=== PATIENT | female | born 1990 | race Caucasian/White ===

== ENCOUNTER 2017-06-02 04:04 | Inpatient (IN) | payer BC ==
[2017-06-02] MEDS: DEXTROSE 5%-0.45% NACL 1,000 ML IV ×2 (05:10→18:14)
[2017-06-02 06:28] LABS: ADD MAN DIFF? NO
[2017-06-02 06:44] LABS: BASOPHILS % 0.6 % (0.0-2.0); EOSINOPHILS # 0.5 10^3/ul (0.0-0.5); EOSINOPHILS % 6.5 % (0.0-7.0); HEMATOCRIT 38.9 % (37.0-47.0); LYMPHOCYTES # 3.2 10^3/ul (0.8-2.9); LYMPHOCYTES % 45.1 % (15.0-51.0); MEAN CORPUSCULAR HEMOGLOBIN 30.4 pg (29.0-33.0); MEAN CORPUSCULAR HGB CONC 33.4 g/dl (32.0-37.0); MEAN CORPUSCULAR VOLUME 90.9 fl (82.0-101.0); MONOCYTE # 0.5 10^3/ul (0.3-0.9); MONOCYTES % 7.5 % (0.0-11.0); NEUTROPHIL # 2.9 10^3/ul (1.6-7.5); NEUTROPHILS % 40.2 % (39.0-77.0); PLATELET COUNT 218 10^3/UL (140-415); RED BLOOD COUNT 4.28 10^6/ul (4.20-5.40)
[2017-06-02 06:44] LABS: WHITE BLOOD COUNT 7.2 10^3/ul (4.8-10.8)
[2017-06-02] MEDS: morphine 2 MG INJ IV ×2 (06:53→11:26)
[2017-06-02 07:11] LABS: ALANINE AMINOTRANSFERASE 84 IU/L (13-69); ALBUMIN 3.1 g/dl (3.3-4.9); ALBUMIN/GLOBULIN RATIO 1.06; ALKALINE PHOSPHATASE 68 IU/L (42-121); ANION GAP 8 (8-16); ASPARTATE AMINO TRANSFERASE 42 IU/L (15-46); BLOOD UREA NITROGEN 11 mg/dl (7-20); CALCIUM 8.5 mg/dl (8.4-10.2); CARBON DIOXIDE 32 mmol/L (21-31); CHLORIDE 108 mmol/L (97-110); CREATININE 0.68 mg/dl (0.44-1.00); GLUCOSE 100 mg/dl (70-220); POTASSIUM 4.1 mmol/L (3.5-5.1); SODIUM 144 mmol/L (135-144)
[2017-06-02] MEDS ORDERED: ZOLPIDEM 5 MG TAB PO (08:30)
[2017-06-02] MEDS ORDERED: NACL 0.9% 3 ML SYG IV (08:30)
[2017-06-02] MEDS ORDERED: ACETAMINOPHEN 325 MG TAB PO (08:30)
[2017-06-02] MEDS: HYDROCODONE/APAP (5/325) TAB PO (10:13)
[2017-06-02] MEDS: ALBUTEROL/IPRATROPIUM (NEB) 3 ML AMP HHN (12:06)
[2017-06-02] MEDS: HYDROmorphONE 0.5 MG/0.5 ML SYG IV ×3 (12:58→21:22)
[2017-06-02 13:30] LABS: INR 0.88; PT RATIO 0.9
[2017-06-03] MEDS: HYDROmorphONE 0.5 MG/0.5 ML SYG IV ×5 (01:49→22:53)
[2017-06-03 06:14] LABS: ADD MAN DIFF? NO
[2017-06-03 06:22] LABS: BASOPHILS % 0.3 % (0.0-2.0); EOSINOPHILS # 0.3 10^3/ul (0.0-0.5); EOSINOPHILS % 4.3 % (0.0-7.0); HEMATOCRIT 37.4 % (37.0-47.0); HEMOGLOBIN 12.7 g/dl (12.0-16.0); LYMPHOCYTES # 2.8 10^3/ul (0.8-2.9); LYMPHOCYTES % 40.1 % (15.0-51.0); MEAN CORPUSCULAR HEMOGLOBIN 30.6 pg (29.0-33.0); MEAN CORPUSCULAR VOLUME 90.1 fl (82.0-101.0); MONOCYTE # 0.4 10^3/ul (0.3-0.9); MONOCYTES % 5.6 % (0.0-11.0); NEUTROPHIL # 3.4 10^3/ul (1.6-7.5); NEUTROPHILS % 49.6 % (39.0-77.0); PLATELET COUNT 216 10^3/UL (140-415); RED BLOOD COUNT 4.15 10^6/ul (4.20-5.40); RED CELL DISTRIBUTION WIDTH 11.9 % (11.5-14.5)
[2017-06-03 06:22] LABS: WHITE BLOOD COUNT 6.9 10^3/ul (4.8-10.8)
[2017-06-03] MEDS: DEXTROSE 5%-0.45% NACL 1,000 ML IV ×3 (06:32→21:00)
[2017-06-03 06:52] LABS: ALANINE AMINOTRANSFERASE 87 IU/L (13-69); ALBUMIN 3.1 g/dl (3.3-4.9); ALKALINE PHOSPHATASE 61 IU/L (42-121); ANION GAP 6 (8-16); ASPARTATE AMINO TRANSFERASE 39 IU/L (15-46); BILIRUBIN,INDIRECT 0.2 mg/dl (0-1.1); BILIRUBIN,TOTAL 0.2 mg/dl (0.2-1.3); BLOOD UREA NITROGEN 6 mg/dl (7-20); CALCIUM 8.4 mg/dl (8.4-10.2); CARBON DIOXIDE 31 mmol/L (21-31); CHLORIDE 108 mmol/L (97-110); CREATININE 0.56 mg/dl (0.44-1.00); GLUCOSE 101 mg/dl (70-220); SODIUM 141 mmol/L (135-144); TOTAL PROTEIN 5.9 g/dl (6.1-8.1)
[2017-06-03] MEDS ORDERED: CEFAZOLIN 1 GM INJ (07:00)
[2017-06-03] MEDS ORDERED: hydrALAzine 20 MG INJ IV (07:00)
[2017-06-03] MEDS ORDERED: DIPHENHYDRAMINE 50 MG INJ IV (07:00)
[2017-06-03] MEDS ORDERED: FENTAnyl 50 MCG/ML VIAL IV ×2 (07:00)
[2017-06-03] MEDS ORDERED: ATROPINE 1 MG/10 ML SYRINGE IV (07:00)
[2017-06-03] MEDS ORDERED: morphine (1 MG/ML) 10ML SYRINGE IV ×3 (07:00)
[2017-06-03] MEDS ORDERED: HYDROmorphONE (0.2 MG/ML) 10ML SYG IV ×2 (07:00)
[2017-06-03] MEDS ORDERED: MIDAZOLAM 1 MG/ML 2 ML INJ IV (07:00)
[2017-06-03] MEDS ORDERED: LABETALOL HCL 20MG INJ IV (07:00)
[2017-06-03] MEDS ORDERED: OXYCODONE/ACETAMINOPHEN (5/325) TAB PO ×2 (07:00)
[2017-06-03] MEDS ORDERED: EPHEDrine SULFATE 50 MG/5 ML SYG IV (07:00)
[2017-06-03] MEDS ORDERED: MEPERIDINE 25 MG INJ IV (07:00)
[2017-06-03] MEDS: PANTOPRAZOLE 40 MG INJ IV (09:54)
[2017-06-03] MEDS ORDERED: NEOSTIGMINE 3 MG/3 ML SYRINGE (11:41)
[2017-06-03] MEDS ORDERED: LIDOCAINE 2% (SDV) 5 ML INJ (11:41)
[2017-06-03] MEDS ORDERED: GLYCOPYRROLATE 0.4 MG INJ (11:41)
[2017-06-03] MEDS ORDERED: ROCURONIUM 50 MG INJ (11:41)
[2017-06-03] MEDS ORDERED: PROPOFOL 20 ML (11:41)
[2017-06-03] MEDS ORDERED: MIDAZOLAM 1 MG/ML 2 ML INJ (11:41)
[2017-06-03] MEDS ORDERED: FENTAnyl 50 MCG/ML VIAL (11:42)
[2017-06-03] MEDS ORDERED: DEXAMETHASONE 4 MG/ML 1 ML INJ (11:44)
[2017-06-03] MEDS ORDERED: ONDANSETRON 4 MG INJ (11:45)
[2017-06-03] MEDS ORDERED: METOCLOPRAMIDE 10 MG INJ IV (12:00)
[2017-06-03] MEDS: BUPIVACAINE 0.25% (MPF) 30 ML INJ (12:30)
[2017-06-03] MEDS: LIDOCAINE 1%/EPI 30 ML INJ (12:31)
[2017-06-03] MEDS ORDERED: SUCCINYLCHOLINE CHLORIDE 100 MG/5 ML SYG IV (13:03)
[2017-06-03] MEDS ORDERED: NALOXONE (0.4 MG/ML) INJ (13:46)
[2017-06-03] MEDS ORDERED: FLUMAZENIL 0.5 MG INJ (13:46)
[2017-06-03] MEDS ORDERED: ACETAMINOPHEN 1000MG/100ML IV 100 ML (14:13)
[2017-06-03] MEDS: HYDROmorphONE (0.2 MG/ML) 10ML SYG IV ×2 (14:18→14:30)
[2017-06-03] MEDS: ONDANSETRON 4 MG INJ IV (14:18)
[2017-06-03] MEDS: ACETAMINOPHEN 1000MG/100ML IV 100 ML IVPB (14:20)
[2017-06-03] MEDS: METOCLOPRAMIDE 10 MG INJ IV ×2 (15:45→20:53)
[2017-06-04] MEDS: HYDROmorphONE 0.5 MG/0.5 ML SYG IV ×4 (03:45→22:10)
[2017-06-04] MEDS: DEXTROSE 5%-0.45% NACL 1,000 ML IV ×2 (03:48→17:20)
[2017-06-04] MEDS: PANTOPRAZOLE 40 MG INJ IV (05:42)
[2017-06-04] MEDS: METOCLOPRAMIDE 10 MG INJ IV ×4 (05:42→17:53)
[2017-06-04 06:19] LABS: ADD MAN DIFF? NO
[2017-06-04 06:34] LABS: WHITE BLOOD COUNT 12.5 10^3/ul (4.8-10.8)
[2017-06-04 06:34] LABS: BASOPHILS % 0.1 % (0.0-2.0); EOSINOPHILS % 0.2 % (0.0-7.0); HEMATOCRIT 38.5 % (37.0-47.0); LYMPHOCYTES # 1.8 10^3/ul (0.8-2.9); LYMPHOCYTES % 14.4 % (15.0-51.0); MEAN CORPUSCULAR HEMOGLOBIN 30.3 pg (29.0-33.0); MEAN CORPUSCULAR HGB CONC 33.8 g/dl (32.0-37.0); MEAN CORPUSCULAR VOLUME 89.7 fl (82.0-101.0); MEAN PLATELET VOLUME 11.1 fl (7.4-10.4); MONOCYTE # 0.6 10^3/ul (0.3-0.9); MONOCYTES % 5.1 % (0.0-11.0); NEUTROPHILS % 79.7 % (39.0-77.0); PLATELET COUNT 252 10^3/UL (140-415); RED BLOOD COUNT 4.29 10^6/ul (4.20-5.40); RED CELL DISTRIBUTION WIDTH 11.7 % (11.5-14.5)
[2017-06-04 07:01] LABS: HEMOGLOBIN A1C 5.1 % (0-5.9)
[2017-06-04 07:07] LABS: ANION GAP 12 (8-16); BLOOD UREA NITROGEN 5 mg/dl (7-20); CALCIUM 8.7 mg/dl (8.4-10.2); CARBON DIOXIDE 27 mmol/L (21-31); CHLORIDE 106 mmol/L (97-110); GLUCOSE 125 mg/dl (70-220); SODIUM 141 mmol/L (135-144)
[2017-06-04 07:08] LABS: CHOLESTEROL 179 mg/dl (100-200)
[2017-06-04 07:08] LABS: CHOL/HDL RATIO 5.1 RATIO; HDL CHOLESTEROL 35 mg/dl (33-83); LDL CHOLESTEROL,CALCULATED 127 mg/dl; TRIGLYCERIDES 83 mg/dl (0-149)
[2017-06-04 08:11] LABS: THYROID STIMULATING HORMONE 0.288 MIU/L (0.465-4.680)
[2017-06-04] MEDS: HYDROCODONE/APAP (5/325) TAB PO ×2 (12:51→16:11)
[2017-06-04] MEDS: CEFOTAXIME 1 GM/50 ML (PMX) 50 ML IVPB ×2 (13:53→22:10)
[2017-06-05] MEDS: HYDROmorphONE 0.5 MG/0.5 ML SYG IV ×6 (02:26→23:34)
[2017-06-05] MEDS: PANTOPRAZOLE 40 MG INJ IV (05:50)
[2017-06-05] MEDS: CEFOTAXIME 1 GM/50 ML (PMX) 50 ML IVPB ×3 (05:50→21:27)
[2017-06-05 06:25] LABS: ADD MAN DIFF? NO
[2017-06-05] MEDS: DEXTROSE 5%-0.45% NACL 1,000 ML IV ×3 (06:30→20:01)
[2017-06-05 06:37] LABS: WHITE BLOOD COUNT 9.8 10^3/ul (4.8-10.8)
[2017-06-05 06:37] LABS: BASOPHILS % 0.2 % (0.0-2.0); EOSINOPHILS # 0.2 10^3/ul (0.0-0.5); EOSINOPHILS % 1.8 % (0.0-7.0); HEMATOCRIT 35.7 % (37.0-47.0); HEMOGLOBIN 11.8 g/dl (12.0-16.0); LYMPHOCYTES # 4.1 10^3/ul (0.8-2.9); LYMPHOCYTES % 42.1 % (15.0-51.0); MEAN CORPUSCULAR HEMOGLOBIN 30.4 pg (29.0-33.0); MEAN CORPUSCULAR HGB CONC 33.1 g/dl (32.0-37.0); MEAN PLATELET VOLUME 11.1 fl (7.4-10.4); MONOCYTE # 0.6 10^3/ul (0.3-0.9); MONOCYTES % 6.1 % (0.0-11.0); NEUTROPHIL # 4.9 10^3/ul (1.6-7.5); NEUTROPHILS % 49.4 % (39.0-77.0); PLATELET COUNT 215 10^3/UL (140-415); RED BLOOD COUNT 3.88 10^6/ul (4.20-5.40); RED CELL DISTRIBUTION WIDTH 11.9 % (11.5-14.5)
[2017-06-05 07:03] LABS: ANION GAP 10 (8-16); BLOOD UREA NITROGEN 8 mg/dl (7-20); CALCIUM 8.5 mg/dl (8.4-10.2); CARBON DIOXIDE 30 mmol/L (21-31); CHLORIDE 105 mmol/L (97-110); CREATININE 0.61 mg/dl (0.44-1.00); GLUCOSE 99 mg/dl (70-220); POTASSIUM 3.6 mmol/L (3.5-5.1); SODIUM 141 mmol/L (135-144)
[2017-06-05] MEDS: HYDROCODONE/APAP (5/325) TAB PO ×2 (09:39→16:37)
[2017-06-05] MEDS: HYDROmorphONE 2 MG/ML SYG IV (10:53)
[2017-06-05] MEDS: DOCUSATE SODIUM 100 MG CAP PO (14:01)
[2017-06-05] MEDS: ONDANSETRON 4 MG INJ IV ×2 (16:45→19:58)
[2017-06-06] MEDS: HYDROCODONE/APAP (5/325) TAB PO ×2 (02:15→11:35)
[2017-06-06] MEDS: HYDROmorphONE 0.5 MG/0.5 ML SYG IV ×3 (03:40→12:26)
[2017-06-06] MEDS: DOCUSATE SODIUM 100 MG CAP PO (03:41)
[2017-06-06] MEDS: PANTOPRAZOLE 40 MG INJ IV (05:10)
[2017-06-06] MEDS: CEFOTAXIME 1 GM/50 ML (PMX) 50 ML IVPB (05:11)
[2017-06-06 06:10] LABS: ADD MAN DIFF? NO
[2017-06-06 06:15] LABS: BASOPHILS % 0.3 % (0.0-2.0); EOSINOPHILS # 0.3 10^3/ul (0.0-0.5); EOSINOPHILS % 4.3 % (0.0-7.0); HEMATOCRIT 35.9 % (37.0-47.0); HEMOGLOBIN 12.2 g/dl (12.0-16.0); LYMPHOCYTES # 2.5 10^3/ul (0.8-2.9); LYMPHOCYTES % 38.1 % (15.0-51.0); MEAN CORPUSCULAR HEMOGLOBIN 30.5 pg (29.0-33.0); MEAN CORPUSCULAR VOLUME 89.8 fl (82.0-101.0); MEAN PLATELET VOLUME 10.4 fl (7.4-10.4); MONOCYTE # 0.4 10^3/ul (0.3-0.9); MONOCYTES % 6.4 % (0.0-11.0); NEUTROPHIL # 3.4 10^3/ul (1.6-7.5); NEUTROPHILS % 50.6 % (39.0-77.0); PLATELET COUNT 208 10^3/UL (140-415); RED CELL DISTRIBUTION WIDTH 11.7 % (11.5-14.5)
[2017-06-06 06:15] LABS: WHITE BLOOD COUNT 6.7 10^3/ul (4.8-10.8)
[2017-06-06 06:32] LABS: ANION GAP 10 (8-16); BLOOD UREA NITROGEN 6 mg/dl (7-20); CALCIUM 8.6 mg/dl (8.4-10.2); CARBON DIOXIDE 33 mmol/L (21-31); CHLORIDE 103 mmol/L (97-110); CREATININE 0.65 mg/dl (0.44-1.00); GLUCOSE 97 mg/dl (70-220); POTASSIUM 3.7 mmol/L (3.5-5.1); SODIUM 142 mmol/L (135-144)
[2017-06-06] MEDS: ONDANSETRON 4 MG INJ IV ×2 (08:52→13:00)
== END 2017-06-06 14:45 | disposition home or self-care (01) | DRG 418 ==
LOC: MS2 04:04
PROVIDERS: Internal Medicine
PROC: 0FT44ZZ Resection of Gallbladder, Percutaneous Endoscopic Approach (ICD-10-PCS; principal; 2017-06-03 11:30)
PROC: 0FB04ZX Excision of Liver, Percutaneous Endoscopic Approach, Diagnostic (ICD-10-PCS; 2017-06-03 11:30)
DX: K80.12 Calculus of gallbladder with acute and chronic cholecystitis without obstruction (principal); K82.1 Hydrops of gallbladder; N39.0 Urinary tract infection, site not specified; K75.81 Nonalcoholic steatohepatitis (NASH); E88.09 Other disorders of plasma-protein metabolism, not elsewhere classified; E78.5 Hyperlipidemia, unspecified; J45.909 Unspecified asthma, uncomplicated; E66.9 Obesity, unspecified; Z68.30 Body mass index [BMI] 30.0-30.9, adult
CPT/HCPCS: 71045; 80048; 80053; 80061; 83036; 84443; 84703; 85025; 85610; 87040; 88304; 88307; 88313; 94664

== ENCOUNTER 2018-07-27 01:30 | Emergency (ER) | payer BC ==
[2018-07-27] MEDS: ACETAMINOPHEN 325 MG TAB PO (02:50)
[2018-07-27 02:59] LABS: ADD MAN DIFF? NO
[2018-07-27 03:02] LABS: BASOPHILS % 0.3 % (0.0-2.0); EOSINOPHILS # 0.4 10^3/ul (0.0-0.5); HEMATOCRIT 39.8 % (37.0-47.0); HEMOGLOBIN 13.1 g/dl (12.0-16.0); LYMPHOCYTES # 3.5 10^3/ul (0.8-2.9); MEAN CORPUSCULAR HGB CONC 32.9 g/dl (32.0-37.0); MEAN CORPUSCULAR VOLUME 91.1 fl (82.0-101.0); MEAN PLATELET VOLUME 10.4 fl (7.4-10.4); MONOCYTE # 0.7 10^3/ul (0.3-0.9); NEUTROPHILS % 60.4 % (39.0-77.0); PLATELET COUNT 272 10^3/UL (140-415); RED BLOOD COUNT 4.37 10^6/ul (4.20-5.40); RED CELL DISTRIBUTION WIDTH 12.5 % (11.5-14.5)
[2018-07-27 03:02] LABS: WHITE BLOOD COUNT 11.6 10^3/ul (4.8-10.8)
[2018-07-27 03:04] LABS: ADD UMIC YES; UR ASCORBIC ACID NEGATIVE (NEGATIVE); UR BACTERIA FEW /HPF (NONE SEEN); UR BILIRUBIN (Dip) NEGATIVE (NEGATIVE); UR BLOOD (Dip) 2+ mg/dL (NEGATIVE); UR CLARITY CLEAR (CLEAR); UR COLOR STRAW (YELLOW); UR GLUCOSE (Dip) NEGATIVE (NEGATIVE); UR KETONES (Dip) NEGATIVE (NEGATIVE); UR LEUKOCYTE ESTERASE (Dip) 1+ Leu/ul (NEGATIVE); UR NITRITE (Dip) NEGATIVE (NEGATIVE); UR RBC 1 /HPF (0-5); UR SQUAMOUS EPITHELIAL CELL FEW /HPF (FEW); UR TOTAL PROTEIN (Dip) NEGATIVE (NEGATIVE); UR UROBILINOGEN (Dip) NEGATIVE (NEGATIVE); UR WBC 1 /HPF (0-5)
== END 2018-07-27 04:37 | disposition home or self-care (01) ==
LOC: FTE 01:30
DX: O20.0 Threatened abortion (principal); N83.01 Follicular cyst of right ovary; O34.81 Maternal care for other abnormalities of pelvic organs, first trimester; O99.511 Diseases of the respiratory system complicating pregnancy, first trimester; J45.909 Unspecified asthma, uncomplicated; Z3A.01 Less than 8 weeks gestation of pregnancy
CPT/HCPCS: 36415; 76801; 76817; 81001; 81025; 84702; 85025; 86900; 86901; 99284-25